=== PATIENT | female | born 1970 | race Two or more races ===

== ENCOUNTER 2024-10-23 23:08 | Emergency (ER) | payer MEDICAID, SELFPAY ==
[2024-10-23 23:09] VITALS: BMI 38.3
[2024-10-24 00:25] VITALS: BP 137/85; PULSE 56; RESP 18; TEMP 36.6; O2SAT 97
--- NOTE | 2024-10-24 00:48 | EDNOTE_ITS ---
ED Female Urogenital RME/HPI General Chief complaint: Back Pain/Injury Stated complaint: ALEXA FLANK PAIN Time Seen by Provider: 10/24/24 00:45 Arrival date/time: 10/23/24 23:08 54F with no significant PMH presents to ED with several weeks of dysuria, increased urination, and some bilateral flank pain. Patient is taking Macrobid and Mirabegron w/o relief. Patient came today because it's affecting her sleep. Related Data Previous Rx's ?Medication ?Instructions ?Recorded omeprazole magnesium 20 mg 20 mg PO QDAY #14 tabs 05/24 10/09 tablet,delayed release (Prilosec OTC) Allergies Allergy/AdvReac Type Severity Reaction Status Date / Time NKA* Allergy Uncoded 07/03/17 14:26 Course Quality Measures none Orders Category Date Time Status CBC Stat Lab 10/24/24 01:00 Completed CMP [Comprehensive Metabolic Panel] Stat Lab 10/24/24 01:00 Completed Urinalysis, C/S if Indicated Stat Lab 10/24/24 01:15 Completed Vital Signs Vital signs: Vital Signs Temperature 97.8 F 10/24/24 00:25 Pulse Rate 56 L 10/24/24 00:25 Respiratory Rate 18 10/24/24 00:25 Blood Pressure 137/85 H 10/24/24 00:25 Pulse Oximetry (%) 97 10/24/24 00:25 Oxygen Delivery Method Room Air 10/24/24 00:25 Urogenital - Female MDM Narrative MDM Narrative:: 54F with no significant PMH presents to ED with several weeks of dysuria, increased urination, and some bilateral flank pain. Patient is taking Macrobid and Mirabegron w/o relief. Patient came today because it's affecting her sleep. Physical exam reveals no ab, pelvic, or flank tenderness. Patient is afebrile, calm, and alert. Labs unremarkable. UA clean. Likely chronic dysuria and/or OAB. C Application Developer given including to stop ABX and to see urologist and/or pelvic floor PT. Patient data External records reviewed:: [facility] previous records Clinical information provided by:: patient Social determinants that could affect healthcare access:: none Patient has the following chronic illnesses:: none How is presenting disease/condition affected by chronic disease/condition?: no chronic disease Evaluation data The following diagnostics were reviewed and interpreted by me:: lab results Lab and/or radiology exams considered but not ordered:: ordered Interpretation Summary: above Medications / Prescriptions Medications or Prescriptions considered but not ordered:: not ordered Medication administrations:: n/a Consultations Consultation(s) initiated? (list below): No Diagnosis Urogenital Female Differential Diagnosis: urinary tract infection, bacterial vaginosis, trichomoniasis, cervicitis, ovarian cyst, vaginitis, ruptured ovarian cyst, cyst of Bartholin's gland, cystitis, dysmenorrhea and other (dysuria) Most likely diagnosis given after review of the tests above:: dysuria Admission Indicated Admission indicated?: not indicated Admission Request Was there a request for admission?: No Disposition Plan Disposition Plan: Discharge Discharge Attestation Discharge Attestation: The patient and all family members were given an opportunity to ask questions and understood the discharge instructions. Discharge instructions specifically effects, indications for sooner follow up or return to the emergency department, and the expected course of current diagnosis. Patient condition: Stable Discharge Plan Plan Patient Disposition: HOME (Self Care) Disposition Comment: Stable Prescriptions/Referrals Prescriptions/Med Rec: No Action omeprazole magnesium [Prilosec OTC] 20 mg tablet,delayed release (DR/EC) 20 mg PO QDAY Qty: 14 0RF Referrals: Jesus Mcneill MD [Primary Care Provider] - In 1 week Problem List Clinical Impression: Dysuria Patient/Caregiver Discharge Instructions Education Materials: ED Dysuria, Uncertain Cause (Adult) Additional Instructions: Please follow-up with PCP within 24-48 hours and return immediately if symptoms worsen. If problems persist, see urologist and/or OBGYN. Pelvic floor PT can also help. May need referral from PCP. Can stop ABX. Print Language: Citizen Of [place] Stand Alone Forms: Patient Portal Info Letter FARZANEH/LAUREL Supervising Physician FARZANEH/LAUREL Supervising Physician: Dr. Cast
[2024-10-24 01:07] LABS: Basophils % (Auto) 1 % (0-2.5); Eosinophils # (Auto) 0.1 Thou/mm3 (0.0-0.5); Eosinophils % (Auto) 2 % (0-10); Hematocrit 40.2 % (36.0-46.0); Hemoglobin 13.9 g/dL (12.0-16.0); Immature Granulocytes % (Auto) 0 % (0-0); Immature Granulocytes Auto 0.02 Thou/mm3 (0.00-0.00); Lymphocytes # (Auto) 3.8 Thou/mm3 (1.0-4.8); Lymphocytes % (Auto) 44 % (10-50); Mean Corpuscular HGB Conc 34.6 g/dl (31.0-37.0); Mean Corpuscular Hemoglobin 30.9 pg (25.0-35.0); Mean Corpuscular Volume 89 fL (80-100); Monocytes # (Auto) 0.6 Thou/mm3 (0.0-0.8); Monocytes % (Auto) 7 % (0-12); Neutrophils % (Auto) 47 % (37-80); Nucleated Red Blood Cell % 0 /100 WBC (0); Platelet Count 222 Thou/mm3 (140-440); RDW Standard Deviation 42.7 fL (36.4-46.3); White Blood Count 8.6 Thou/mm3 (3.6-11.0)
[2024-10-24 01:47] LABS: Alanine Aminotransferase 33 U/L (10-49); Albumin, Serum 4.3 gm/dL (3.5-5.0); Albumin/Globulin Ratio 1.4 (1.2-2.2); Alkaline Phosphatase 99 U/L (46-116); Anion Gap 7 (7-16); Aspartate Amino Transferase 24 U/L (0-34); BUN/Creatinine Ratio 27 Ratio (12-20); Bilirubin,Total 0.4 mg/dL (0.3-1.2); Blood Urea Nitrogen 16 mg/dL (9-23); Calcium 9.5 mg/dL (8.3-10.6); Calcium (Corrected) 9.5 mg/dL (8.5-10.1); Carbon Dioxide 27.9 mMol/L (20.0-31.0); Chloride 108 mMol/L (98-107); Creatinine (Component) 0.6 mg/dL (0.6-1.3); Globulin 3.1 gm/dL (2.3-3.5); Glucose 99 mg/dL (74-106); Osmolality,Calculated 286 (275-295); Potassium 4.3 mMol/L (3.4-5.1); Sodium 143 mMol/L (136-145); Total Protein 7.4 gm/dL (5.7-8.2); eGFR > 60 See Note
[2024-10-24 02:37] LABS: Collection Type, Urine Clean Catch
[2024-10-24 02:57] LABS: Bilirubin,Urine Negative (Negative); Blood,Urine Negative (Negative); Clarity,Urine Clear (Clear/Hazy); Color,Urine Lt-Yellow (Lt Yel-Yel); Culture Indicated,Urine Not Indicated; Glucose, Urine Negative (Negative); Ketones,Urine Negative (Negative); Leukocyte Esterase,Urine Negative (Negative); Nitrite,Urine Negative (Negative); Protein,Urine Negative (Neg - Trace); RBC,Urine < 1 /hpf (0-3); Squamous Epithelial Cell,Urine 2 /hpf (0-5); Urobilinogen,Urine Negative mg/dL (0.0-1.0); WBC,Urine 1 /hpf (0-5)
== END 2024-10-24 03:18 | disposition home or self-care (01) ==
PROVIDERS: Physician Assistant; Emergency Provider Emergency Medicine; PCP Student in an Organized Health Care Education/Training Program
DX: R30.0 Dysuria (principal); R10.9 Unspecified abdominal pain
CPT/HCPCS: 36415; 80053; 81001; 85025; 99283

== ENCOUNTER → 2025-09-14 | Outpatient (CLI) | payer MEDICAID, SELFPAY ==
--- NOTE | 2025-09-14 11:00 | XR_ITS ---
Examination: Abdomen sonogram, complete Date and time of exam: September 14, 2025, 1123 hours INDICATIONS: Abdominal distention beginning 1 year ago. Technique: Multiple real-time grayscale transabdominal sonographic images of the abdomen have been obtained. Findings: Absent gallbladder Common bile duct 0.6 cm no stones Pancreatic head 2.4 cm Aorta not enlarged Liver 14.9 cm fatty infiltration Normal hepatopetal portal venous flow Patent IVC Right kidney 9.8 cm renal cortex 1.4 cm Left kidney 11.7 cm renal cortex 1.7 cm Hyperechoic left renal parenchyma Spleen 8.1 cm IMPRESSION: Negative for common bile duct stone Liver normal size fatty infiltration Hyperechoic left renal pelvis, consider CT stone study follow-up to exclude left renal calculi
--- NOTE | 2025-09-14 11:30 | XR_ITS ---
Examination: Screening digital mammography, bilateral Computer aided detection 3-D breast Tomosynthesis, bilateral Date and time of exam: September 14, 2025, 1117 hours, compared to mammograms dating to July 08, 2015 Indication: Screening Technique: Nonmagnified MLO, CC views of the breasts to been obtained, reconstructed from 3-D Tomosynthesis images. R2 computer aided detection program utilized for evaluation of suspicious masses and/or abnormal calcifications. 3-D Tomosynthesis images obtained. Findings: Scattered areas of fibroglandular density. Benign calcifications. No interval suspicious masses Impression: BI-RADS category II: Benign Findings. Recommend 1 year follow-up mammogram.
== END | disposition home or self-care (01) ==
DX: Z12.31 Encounter for screening mammogram for malignant neoplasm of breast (principal); R92.323 Mammographic fibroglandular density, bilateral breasts; R92.1 Mammographic calcification found on diagnostic imaging of breast; K76.0 Fatty (change of) liver, not elsewhere classified; Z00.01 Encounter for general adult medical examination with abnormal findings
CPT/HCPCS: 76700; 77063; 77067